=== PATIENT | male | born 2000 | race Two or more races ===

== ENCOUNTER 2023-04-16 09:49 | Emergency (ER) | payer SELFPAY ==
[~2023-04-16] VITALS: Ht 177.8 cm; Wt 93.0 kg
[2023-04-16 10:11] VITALS: BP 130/85; TEMP 97.8
[2023-04-16 10:26] VITALS: PULSE 64; RESP 16; O2SAT 95
== END 2023-04-16 13:18 | disposition left against medical advice (07) ==
LOC: ER 09:49
DX: R51.9 Headache, unspecified (principal); Z53.21 Procedure and treatment not carried out due to patient leaving prior to being seen by health care provider